=== PATIENT | male | born 1975 | race Caucasian/White ===

== ENCOUNTER → 2017-02-27 | Outpatient (CLI) | payer OTHER ==
--- NOTE | 2017-03-01 19:56 | SLEEP ---
DATE OF STUDY: 02/27/2017 ATTENDING PHYSICIAN: Dr. Giorgio Campuzano. HISTORY OF PRESENT ILLNESS: The patient is a 41-year-old who weighs 170 pounds with a BMI of 29. The patient's [place] score was 2. Sleep study was performed at [facility]. During the night study, the patient spent 417 minutes in bed and slept for 386 minutes with a sleep efficiency of 93%. Sleep latency was 22 minutes with a REM latency of 158 minutes. Overall, sleep architecture showed normal stage I sleep, increased stage II sleep, normal slow wave and normal REM sleep. During the night study, the patient had 1 obstructive apnea, 13 mixed apneas and no central apneas. There were 37 hypopneas. The patient's apnea hypopnea index was 8 per hour, supine index 11 per hour and REM index of 13 per hour. Review of nocturnal oximetry study revealed a mean oxygen saturation of 94% with the lowest of 87%. The only 2% of time oxygen saturation remained between 80% and 89%. EKG monitoring revealed normal sinus rhythm, average heart rate was 65 beats per minute. PLMS were seen at index of 14 per hour and 3 per hour caused EEG arousals. Due to low AHI, the patient did not meet the split night criteria for CPAP initiation. IMPRESSION: 1. Mild sleep apnea-hypopnea syndrome at an index of 8 per hour. 2. Mild nocturnal hypoxia secondary to obstructive sleep apnea. 3. Mild periodic limb movements of sleep. RECOMMENDATIONS: 1. The patient did not meet the split night criteria for CPAP initiation. 2. The patient has mild sleep apnea, I would recommend weight loss first. 3. If the patient continues to have daytime sleepiness despite weight loss then consider treatment of sleep apnea with either an oral appliance or CPAP titration 4. Avoid [employer] depressant. 5. Cautioned regarding driving until symptoms of sleep apnea resolve with the above recommendation. 6. PLMS does not need to be treated unless the patient has symptoms of restless legs during the day. DIANNA LEMUS MD DR: DIGNA/minesh JOB#: [id number] / [id number] FRANCIS
== END | disposition home or self-care (01) ==
LOC: SLPLAB 18:32
DX: G47.33 Obstructive sleep apnea (adult) (pediatric) (principal)
CPT/HCPCS: 95810

== ENCOUNTER → 2017-10-03 | Outpatient (CLI) | payer OTHER ==
[~2017-10-03] MED LIST: IBUP-1060 PO; IOHEXOL 180 MG/ML 10 ML VIAL. ONE; methylPREDNISolone ACETATE 40 MG/ML VIAL. ONE; methylPREDNISolone ACETATE 80 MG/ML VIAL. ONE
--- NOTE | 2017-10-03 18:08 | PAIN ---
DATE OF SERVICE: 10/03/2017 INITIAL CONSULTATION FOR PAIN CLINIC CHIEF COMPLAINT: Neck and right upper extremity pain. HISTORY OF PRESENT ILLNESS: This is a 42-year-old male who presents with history of pain to the patient's neck, right upper extremity since about 1 month ago. The patient reports it is increasing over the past 2 weeks significantly without any specific injury or action that he is aware of. It came on suddenly though. The patient reports it awakes him from sleep at least twice a night, does not affect his bowel or bladder control, but does affect his ability to walk. The patient reports no loss of motor function, but significant fatigability to right upper extremity and some numbness and weakness in the right hand with lifting items. Sometimes he drops things with the right hand and he is right handed. The patient has had some chiropractic treatment in the past as well as some physical therapy, but nothing since 2007. In 2017, had physical therapy for his low back, was also having some pain as well, but nothing specifically for the shoulder or neck. The patient has had no other therapies at this time. The patient reports the pain is constant, sharp, throbbing, stabbing, shooting with numbness and radiating pain in the right arm and hand, again some weakness in the right hand with repetitive motions and activity, changes during the day. The patient did have an MRI scan of the cervical spine showing previous anterior cervical fusion at C6-C7 with spondylotic and moderately severe degenerative disk disease of C5-C6 with moderately severe left foraminal and moderate right foraminal narrowing with slight cord effacement. The patient reports his disability rating from 0-10, 10 being the worst, is a 9 with family home responsibilities, social activity and sexual behavior; 10 with recreation; 5 with occupation; 5 with self-care and 7 with life support activities. PAST MEDICAL HISTORY: Significant for no major medical problems or conditions. PREVIOUS SURGERY: Includes cervical fusion in 2008. CURRENT MEDICATIONS: Include only ibuprofen p.r.n. ALLERGIES: The patient has no known drug allergies. FAMILY HISTORY: Negative for any major conditions or diseases. SOCIAL HISTORY: The patient does not smoke, does not drink alcohol, is and lives with his spouse, lives locally and is active . REVIEW OF SYSTEMS: The patient's review of systems is positive for those items in history of present illness. All systems reviewed and is otherwise negative. It is complete, full and well documented on the patient's chart. PHYSICAL EXAMINATION: VITAL SIGNS: Today, the patient's blood pressure is 151/92, pulse 94, respirations 18, temperature 98.1 degrees Fahrenheit. Height is 64 inches. The patient's weight is 180 pounds. GENERAL: The patient is awake, alert, oriented, appropriate, very pleasant demeanor. HEENT: Shows normocephalic, atraumatic. Extraocular muscles are intact and symmetrical. Oral cavity: Mucous membranes moist and pink. Dentition is intact. NECK: Shows anterior throat supple without palpable lymphadenopathy noted. Swallow reflex is symmetrical. CHEST: Shows normal on inspection. Breath sounds clear to auscultation bilaterally. HEART: Shows S1, S2 clear. No murmurs auscultated. ABDOMEN: Soft, nontender, nondistended. No palpable organomegaly. No rebound or guarding demonstrated. BACK: Shows spine grossly midline. Normal-appearing cervical lordotic curvature, thoracic kyphotic curvature, and lumbar lordotic curvature. No previous bruises, lesions, rashes or scars are noted. The patient's neck shows anterior throat supple. Posterior cervical musculature shows symmetrical with inspection. On palpation, shows some [id number]-sy-xkbzaudf tenderness in the inferior aspect of the cervical paraspinous muscle on the right side only into the right lateral and superior trapezius, but not on the left. The patient shows no trigger points, no radiation of pain. He has full rotational motion of cervical spine, both laterally as well as extension and flexion without significant pain reported. Minor pain with far right lateral rotation past 45 degrees only, but without radiation. EXTREMITIES: The patient's upper extremities show deep tendon reflexes 2+ in the biceps and triceps tendons. Motor exam is approximately 4 on a scale 5 with right plaster machine tender and biceps and triceps flexion and 5/5 on the left. Peripheral pulses are 2+ radial distribution. No peripheral edema is noted. No clubbing, no cyanosis. Upper extremities are warm and dry to touch, equal in color and appearance. Shoulder shrug is strong and intact without loss of strength and resistance as is abduction of shoulder to 90 degrees without loss of strength on resistance. IMPRESSION: 1. This is a 42-year-old male with approximate 1 month history of increasing pain base of the neck, right upper extremity in a radicular fashion. 2. MRI scan cervical spine as noted. PLAN: Options were discussed with the patient including cervical medical management, physical therapy, interventional techniques. He would like to pursue interventional techniques. We discussed the cervical epidural steroid injection using descriptions as well as anatomical models to describe the procedure. Risks were then discussed including, but not limited to bleeding, infection, possibility of epidural hematoma and subsequent neurological compromise, dural puncture, headaches, spinal cord and/or nerve damage, side effects of steroid medication and poor results regarding pain control. The patient understands and wished to proceed. The patient will return to the clinic in approximately 2 weeks for followup. He was counseled to return appointment, activity level and side effects to be aware of. DIAGNOSES: Cervical radiculopathy, cervical degenerative disk disease and post-cervical laminectomy syndrome. PROCEDURE: Cervical epidural steroid injection, translaminar approach at C5-C6 level using C-arm fluoroscopic guidance under sterile prep and drape using local anesthetic. Medication injected is total of 120 mg Depo-Medrol plus 5 mL preservative-free normal saline and 2 mL Isovue for contrast. CONDITION AT DISCHARGE: Stable. The patient tolerated the procedure well, had no complications. PRIYA GOEL MD DR: JOCELYN/minesh JOB#: [id number] / [id number]
== END ==
LOC: PNCL 07:43
PROVIDERS: ATTEND Anesthesiology
DX: M50.10 Cervical disc disorder with radiculopathy, unspecified cervical region (principal); M96.1 Postlaminectomy syndrome, not elsewhere classified
CPT/HCPCS: 62321; J1030; J1040

== ENCOUNTER → 2017-10-19 | Outpatient (CLI) | payer OTHER ==
[~2017-10-19] MED LIST changes: +MULT1TAB52 PO
--- NOTE | 2017-10-19 08:29 | PAIN ---
DATE OF SERVICE: 10/19/2017 DIAGNOSES: Cervical radiculopathy, cervical degenerative disk disease and post-cervical laminectomy syndrome. HISTORY OF PRESENT ILLNESS: The patient is a 42-year-old male who returns for followup status post cervical epidural steroid injection x 1. The patient reports about 30% improvement overall. Pain is not radiating down to his arms as extensively as it was previously on the right side, still some right arm pain, shoulder pain, base of the neck, rated at 8 on a scale of 10 at its worst, 6 at its average and a 3 at its least and is a 4 today. The patient reports aching, sharp, dull, shooting, stabbing, becoming more constant, but much better after the injection, initially the first week was doing very well, about 80% improvement, now about 30% overall, still pain in the right shoulder and arm, radiating to the posterior aspect of the triceps, also into the anterior biceps, but only to the elbow, not into the forearm as it was previously. The patient reports no new motor or sensory deficits, no new bowel or bladder incontinence. The patient reports it wakes him from sleep occasionally on his right side, but not every night, sleeps about 5 hours at a time. PHYSICAL EXAMINATION: VITAL SIGNS: The patient's blood pressure 132/93, pulse 78, respirations 16, temperature 97.9 degrees Fahrenheit, height is 5 feet 4 inches, weighs 178 pounds. GENERAL: The patient is awake, alert, oriented, appropriate, very pleasant demeanor. HEENT: Shows normocephalic, atraumatic. Extraocular movements are intact, symmetrical. Oral cavity: Mucous membranes moist and pink. Dentition is intact. NECK: Shows anterior throat supple without palpable lymphadenopathy noted. Swallow reflex symmetrical. CHEST: Shows normal on inspection. Breath sounds are clear to auscultation bilaterally. HEART: Shows S1, S2 clear. ABDOMEN: Soft, nontender, nondistended. BACK: Shows spine grossly midline. Cervical paraspinous muscle shows some moderate tenderness with palpation only diffusely in the right inferior aspect of the cervical paraspinous musculature and the right superior medial trapezius. Neck shows full rotational motion of cervical spine, both laterally as well as extension and flexion. EXTREMITIES: Upper extremities show deep tendon reflexes 2+ in the biceps and triceps tendons. Motor exam is approximately 4 on a scale 5 with right bicep, tricep flexion, 5/5 on the left. Peripheral pulses are 2+ bilaterally. Options were discussed with the patient. The patient's old chart was reviewed, current medication regimen updated. Current review of systems updated today as well. We will proceed with the cervical epidural steroid injections, the second in the series with fluoroscopic guidance. Risks were again discussed including, but not limited to bleeding, infection, possibility of epidural hematoma, subsequent neurologic compromise, dural puncture, headaches, spinal cord and/or nerve damage, side effects of steroid medication and poor results regarding pain control. The patient understands and wished to proceed. The patient will return to clinic in approximately 2 weeks for followup. He was counseled on return appointment, activity level and side effects to be aware of. DIAGNOSES: Cervical radiculopathy, cervical degenerative disk disease and post-cervical laminectomy syndrome. PROCEDURE: Cervical epidural steroid injection, translaminar approach at C6-7 level using C-arm fluoroscopic guidance under sterile prep and drape using local anesthetic. MEDICATIONS INJECTED: A total of 120 mg Depo-Medrol, plus 5 mL preservative-free normal saline and 2 mL Isovue contrast. CONDITION AT DISCHARGE: Stable. The patient tolerated procedure well, had no complications. PRIYA GOEL MD DR: JOCELYN/minesh JOB#: [id number] / [id number]
== END | disposition home or self-care (01) ==
LOC: PNCL 07:38
PROVIDERS: ATTEND Anesthesiology
DX: M50.123 Cervical disc disorder at C6-C7 level with radiculopathy (principal); M96.1 Postlaminectomy syndrome, not elsewhere classified
CPT/HCPCS: 62321; J1030; J1040

== ENCOUNTER → 2017-11-02 | Outpatient (CLI) | payer OTHER ==
--- NOTE | 2017-11-02 09:46 | PAIN ---
DATE OF SERVICE: 11/02/2017 DIAGNOSES: Cervical radiculopathy with cervical degenerative disk disease and post-cervical laminectomy syndrome. HISTORY OF PRESENT ILLNESS: The patient is a 42-year-old male who returns for followup status post cervical epidural steroid injections x 2. The patient reports about a 30% overall improvement in the neck and right upper extremity, feels that is overall better. He has been increasing his activity with greater ease and comfort. Still some significant pain; however, radiating from the base of neck in the right shoulder, arm and mostly just in the upper arm ____ the entire arm. The patient reports it is not quite as bad as it was, still better with resting and sleeping. It is not awakening him from sleep, he sleeps 7-8 hours a night without difficulty. The patient reports the pain is 8 on a scale of 10 at its worst, 6 on its average and 5 at its least and is a 5 today. He describes it as sharp, tight, dull, stabbing, constant, alternating, again only into the upper arm, mostly posterior just below the shoulder in the base of the neck on the right side. The patient reports no other changes. PHYSICAL EXAMINATION: VITAL SIGNS: The patient's blood pressure 143/79, pulse 63, respirations 16, temperature 98.1 degrees Fahrenheit, height is 5 feet 4 inches, weight is 178 pounds. GENERAL: He is awake, alert, oriented, appropriate, very pleasant demeanor. HEENT: Head shows normocephalic, atraumatic. Extraocular movements are intact and symmetrical. Oral cavity: Mucous membranes moist and pink. Dentition is intact. NECK: Shows anterior throat supple without palpable lymphadenopathy noted. Swallow reflex is symmetrical. CHEST: Shows normal on inspection. Breath sounds are clear to auscultation bilaterally. HEART: Shows S1, S2 clear. No murmurs auscultated. ABDOMEN: Soft, nontender, nondistended. No palpable organomegaly is noted. No rebound or guarding demonstrated. BACK: Shows spine grossly in the midline. Cervical lordotic curvature appears normal as does thoracic kyphotic curvature. Cervical paraspinous muscle shows only some very mild tenderness in the inferior aspect of the cervical paraspinous musculature, in the superior medial trapezius on the right compared to the left, but is symmetrical without atrophy, hypertrophy, no trigger points, no radiation. The patient has good rotational motion of cervical spine, both laterally, greater than 45 degrees right and left as well as full extension, full forward flexion without significant pain reported. EXTREMITIES: Upper extremities show deep tendon reflexes 2+ in the biceps and triceps tendons. Motor exam is strong with approximately 4 on a scale of 5 with right bicep and tricep flexion and 5/5 on the left. Peripheral pulses are 2+ in radial distribution. No peripheral edema is noted. Options were discussed with the patient. The patient's old chart was reviewed. His current medication regimen updated. Current review of systems updated today as well. We will proceed with a third in the series of cervical epidural steroid injection today with fluoroscopic guidance. Risks were again discussed including, but not limited to bleeding, infection, possibility of epidural hematoma, subsequent neurologic compromise, dural puncture, headaches, spinal cord and/or nerve damage, side effects of steroid medication and poor results regarding pain control. The patient understands and wished to proceed. The patient will return to clinic in approximately 2 weeks for followup. He was counseled on return appointment, activity level and side effects to be aware of. DIAGNOSES: Cervical radiculopathy with cervical degenerative disk disease and post-cervical laminectomy syndrome. PROCEDURE: Cervical epidural steroid injection, translaminar approach at C6-C7 level using C-arm fluoroscopic guidance under sterile prep and drape using local anesthetic. MEDICATION INJECTED: A total of 120 mg Depo-Medrol plus 5 mL preservative-free normal saline and 2 mL Isovue for contrast. CONDITION AT DISCHARGE: Stable. The patient tolerated the procedure well, had no complications. PRIYA GOEL MD DR: JOCELYN/minesh JOB#: [id number] / [id number]
== END | disposition home or self-care (01) ==
LOC: PNCL 07:56
PROVIDERS: ATTEND Anesthesiology
DX: M50.123 Cervical disc disorder at C6-C7 level with radiculopathy (principal); M96.1 Postlaminectomy syndrome, not elsewhere classified
CPT/HCPCS: 62321; J1030; J1040

== ENCOUNTER → 2017-12-01 | Outpatient (CLI) | payer OTHER ==
[~2017-12-01] MED LIST changes: -IBUP-1060 PO; +IOHEXOL 180 MG/ML 10 ML VIAL.; -IOHEXOL 180 MG/ML 10 ML VIAL. ONE; -MULT1TAB52 PO; +methylPREDNISolone ACETATE 40 MG/ML VIAL.; -methylPREDNISolone ACETATE 40 MG/ML VIAL. ONE; +methylPREDNISolone ACETATE 80 MG/ML VIAL.; -methylPREDNISolone ACETATE 80 MG/ML VIAL. ONE
== END | disposition home or self-care (01) ==
LOC: PNCL 09:33
DX: M51.16 Intervertebral disc disorders with radiculopathy, lumbar region (principal); M96.1 Postlaminectomy syndrome, not elsewhere classified; M50.10 Cervical disc disorder with radiculopathy, unspecified cervical region
CPT/HCPCS: 62323; J1030; J1040